=== PATIENT | male | born 1985 | race Caucasian/White ===

== ENCOUNTER → 2017-02-19 13:25 | Outpatient (CLI) | payer OTHER ==
[2017-02-19 19:48] LABS: BASOPHILS 0.4 % (0-2); EOSINOPHILS 1.4 % (0-7); HEMATOCRIT 47.5 % (42.0-54.0); HEMOGLOBIN 15.8 g/dL (13.5-17.5); IMMATURE GRANULOCYTES 0.2 % (0-5); LYMPHOCYTES 29.6 % (15-50); MCH 29.2 pg (26.0-34.0); MCHC 33.3 g/dL (31.0-37.0); MCV 87.8 fL (80.0-100.0); MEAN PLATELET VOLUME 9.7 fL (7.4-10.4); MONOCYTES 6.4 % (2-11); PLATELET COUNT 403 10x3/uL (130-400); RBC 5.41 10x6/uL (4.20-6.10); RDW 13.4 % (11.5-14.5)
[2017-02-19 20:08] LABS: ALBUMIN 4.6 g/dL (3.4-5.0); BILIRUBIN - DIRECT 0.2 mg/dL (0.00-0.30); BILIRUBIN - INDIRECT 0.9 mg/dL (0.00-1.00); BILIRUBIN - TOTAL 1.1 mg/dL (0.2-1.3); PROTEIN - SERUM 7.8 g/dL (6.4-8.2)
[2017-02-24 14:14] LABS: FUNGUS STAIN Final report (())
== END | disposition home or self-care (01) ==
LOC: D.LABREF 13:25
PROVIDERS: Student in an Organized Health Care Education/Training Program
DX: B37.0 Candidal stomatitis (principal)

== ENCOUNTER → 2017-02-19 21:00 | Outpatient (CLI) | payer OTHER | END | disposition home or self-care (01) | LOC: D.LABREF 21:00 | DX: B37.0 Candidal stomatitis (principal); J06.9 Acute upper respiratory infection, unspecified; Z79.899 Other long term (current) drug therapy; N48.1 Balanitis ==

== ENCOUNTER 2019-05-20 05:33 | Emergency (ER) | payer BC ==
[~2019-05-20] VITALS: Ht 175.3 cm; Wt 94.5 kg
[2019-05-20 05:38] VITALS: Ht 175.3 cm; Wt 94.5 kg
[2019-05-20 06:20] LABS: BASOPHILS 0.6 % (0-2); EOSINOPHILS 7.7 % (0-7); HEMATOCRIT 44.4 % (42.0-54.0); HEMOGLOBIN 15.4 g/dL (13.5-17.5); IMMATURE GRANULOCYTES 0.2 % (0-5); MCH 29.8 pg (26.0-34.0); MCHC 34.7 g/dL (31.0-37.0); MCV 85.9 fL (80.0-100.0); MEAN PLATELET VOLUME 9.2 fL (7.4-10.4); MONOCYTES 8.6 % (2-11); NEUTROPHILS 47.9 % (40-80); PLATELET COUNT 449 10x3/uL (130-400); RBC 5.17 10x6/uL (4.20-6.10); RDW 13.9 % (11.5-14.5); WBC 5.1 10x3/uL (4.8-10.8)
[2019-05-20 06:38] LABS: ALBUMIN 4.1 g/dL (3.4-5.0); ALKALINE PHOSPHATASE 45 U/L (46-116); ALT (SGPT) 45 U/L (10-68); BILIRUBIN - TOTAL 0.82 mg/dL (0.2-1.3); CALC OSMOLALITY 286 mosm/kg (275-300); CALCIUM 9.1 mg/dL (8.5-10.1); CARBON DIOXIDE 29.6 mmol/L (21.0-32.0); CHLORIDE - SERUM 106 mmol/L (98-107); GLUCOSE 108 mg/dL (74-106); LIPASE 150 U/L (73-393); POTASSIUM - SERUM 4.4 mmol/L (3.5-5.1); PROTEIN - SERUM 7.1 g/dL (6.4-8.2); SODIUM 143 mmol/L (136-145); UREA NITROGEN 14 mg/dL (7-18); eGFR NON AFRICAN AMERICAN 90 mL/min (90-120)
[2019-05-20 07:09] LABS: APPEARANCE CLEAR (CLEAR); BACTERIA FEW /hpf (NONE SEEN); BILIRUBIN NEGATIVE (NEGATIVE); COLOR YELLOW (YELLOW); EPITHELIAL CELLS RARE /hpf (0-5); GLUCOSE NEGATIVE (NEGATIVE); KETONE NEGATIVE (NEGATIVE); NITRITE NEGATIVE (NEGATIVE); PROTEIN NEGATIVE (NEGATIVE); RED CELLS - URINE 25-50 /hpf (0-5); SPECIFIC GRAVITY 1.025 (1.005-1.020); UROBILINOGEN NORMAL (NORMAL); WHITE CELLS - URINE OCC /hpf (0-5)
[2019-05-20] MEDS ORDERED: ZOFRAN ODT4 MG/UDTAB PO (08:11)
[2019-05-20] MEDS ORDERED: FLOMAX0.4 MG PO (08:11)
[2019-05-20] MEDS ORDERED: HYDROCODON-ACE1 EA10 PO (08:11)
[2019-05-20 08:52] VITALS: BP 136/82
== END 2019-05-20 08:28 | disposition home or self-care (01) ==
LOC: D.ER 05:33
PROVIDERS: Family Medicine
DX: N20.0 Calculus of kidney (principal)